=== PATIENT | male | born 1990 ===

== ENCOUNTER → 2016-02-29 | Outpatient (REF) | payer OTHER ==
[2016-02-29 14:19] LABS: ALBUMIN 5.2 g/dL (3.4-5.0); ALKALINE PHOSPHATASE 55 U/L (38-126); ANION GAP 18.1 MEQ/L (3-15); BUN/CREATININE RATIO 18 (10-20); CALCULATED IONIZED CALCIUM 4.1 mg/dL (3.8-4.6); TOTAL PROTEIN 8.5 g/dL (6.4-8.5)
[2016-02-29 18:33] LABS: GC-CHLAMYDIA SOURCE URINE; N.gonorrhoeae SOURCE URINE
== END ==
LOC: LAB 13:52
PROVIDERS: ATTEND Family Medicine
DX: Z00.00 Encounter for general adult medical examination without abnormal findings (principal); Z13.220 Encounter for screening for lipoid disorders; Z11.3 Encounter for screening for infections with a predominantly sexual mode of transmission
CPT/HCPCS: 80053; 80061; 87491; 87591